=== PATIENT | female | born 1940 | race African-American/Black ===

== ENCOUNTER 2021-01-21 15:47 | Inpatient (IN) | payer MEDICARE, MEDICAID ==
[~2021-01-21] VITALS: Ht 162.6 cm; Wt 69.5 kg
[2021-01-21 16:00] VITALS: BP 131/63
[2021-01-21 20:00] VITALS: BP 110/52
[2021-01-21] MEDS ORDERED: DEXTROSE 50% WATER 50ML SYRINGE IV PRN (20:15)
[2021-01-21] MEDS ORDERED: HYDROCODONE/ACETAMINOPHEN 5/325MG TABLET PO PRN (20:15)
[2021-01-21] MEDS ORDERED: CEFTRIAXONE 1 G PREMIX 50 ML IV SCH (20:15)
[2021-01-21] MEDS ORDERED: HEPARIN 5000 UNITS/ML VIAL IV SCH (20:30)
[2021-01-21] MEDS ORDERED: HEPARIN 25,000 UNITS PREMIX 250 ML IV PRN (20:30)
[2021-01-21] MEDS: BLOOD SUGAR DIAGNOSTIC STRIP TEST SCH (21:00)
[2021-01-21] MEDS ORDERED: HEPARIN 5000 UNITS/ML VIAL IV PRN ×2 (22:00)
[2021-01-21] MEDS: ATORVASTATIN CALCIUM 40MG TABLET PO SCH (22:05)
[2021-01-21] MEDS: CEFTRIAXONE 1,000 MG in DEXTROSE 5% WATER 50 ML IV SCH (22:07)
[2021-01-21] MEDS: INSULIN LISPRO 100 UNITS/ML SUBCUT SCH (22:09)
[2021-01-22] VITALS (8 sets, daily range): BP systolic 101–129; BP diastolic 48–69
[2021-01-22 05:49] LABS: HEMATOCRIT. 34.8 % (36.0-48.0); HEMOGLOBIN. 11.5 g/dL (12.0-16.0); MEAN CORPUSCULAR HEMOGLOBIN 31.3 pg (28.0-32.0); MEAN CORPUSCULAR VOLUME 94.5 fL (81.0-99.0); MEAN PLATELET VOLUME 10.9 fl (7.4-10.4); PLATELET 150 x1000/uL (130-400); RED BLOOD CELL COUNT 3.68 mill/uL (4.2-5.4); RED CELL DISTRIBUTION WIDTH 13.5 % (11.6-14.6)
[2021-01-22 06:36] LABS: CHLORIDE 107 mEq/L (98-107)
[2021-01-22] MEDS: BLOOD SUGAR DIAGNOSTIC STRIP TEST SCH ×4 (06:52→20:42)
[2021-01-22] MEDS: INSULIN LISPRO 100 UNITS/ML SUBCUT SCH ×4 (07:50→20:42)
[2021-01-22] MEDS ORDERED: NICARDIPINE 100MCG/ML 10ML VIAL (CATH LAB) IV ONE (08:04)
[2021-01-22] MEDS ORDERED: NITROGLYCERIN 50MCG/ML 10ML VIAL (CATH LAB) IV ONE (08:04)
[2021-01-22] MEDS: FAMOTIDINE 20MG TABLET PO SCH (09:00)
[2021-01-22] MEDS: ASPIRIN 81MG TABLET PO SCH (09:00)
[2021-01-22] MEDS: TICAGRELOR 90 MG TABLET PO SCH ×2 (09:00→17:40)
[2021-01-22] MEDS ORDERED: FENTANYL CITRATE/PF 50MCG/ML 2ML VIAL ONE (10:48)
[2021-01-22] MEDS ORDERED: LIDOCAINE HCL 1% 10 MG/ML 10ML VIAL ONE ×2 (10:49→11:38)
[2021-01-22] MEDS ORDERED: IODIXANOL 320MG/ML 100 ML BOTTLE IV ONE ×2 (10:49→12:47)
[2021-01-22] MEDS ORDERED: MIDAZOLAM HCL 2 MG/2 ML VIAL ONE (10:49)
[2021-01-22] MEDS ORDERED: HEPARIN 1000 UNITS/ML 10ML ONE (10:49)
[2021-01-22] MEDS ORDERED: IOHEXOL-300 100 ML BOTTLE ONE (12:20)
[2021-01-22] MEDS ORDERED: ASPIRIN 81MG TABLET ONE (13:07)
[2021-01-22] MEDS ORDERED: TICAGRELOR 90 MG TABLET PO ONE (13:08)
[2021-01-22] MEDS ORDERED: ATROPINE SULFATE 1MG/10ML SYR IV PRN (13:30)
[2021-01-22] MEDS ORDERED: NALOXONE HCL 0.4MG/ML VIAL IV PRN (13:30)
[2021-01-22] MEDS ORDERED: MORPHINE SULFATE 2 MG/ML CPJ (NOT FOR IM USE) IV PRN (13:30)
[2021-01-22] MEDS: ATORVASTATIN CALCIUM 40MG TABLET PO SCH (20:41)
[2021-01-22] MEDS: ACETAMINOPHEN 325MG TABLET PO PRN (20:41)
[2021-01-22] MEDS: CEFTRIAXONE 1,000 MG in DEXTROSE 5% WATER 50 ML IV SCH (21:30)
[2021-01-22 22:32] LABS: PLATELET ESTIMATE NORMAL
[2021-01-23] VITALS (16 sets, daily range): BP systolic 97–134; BP diastolic 48–80
[2021-01-23] MEDS ORDERED: AMIODARONE HCL 900 MG in DEXT 5% WATER 482 ML IV SCH (01:00)
[2021-01-23] MEDS ORDERED: AMIODARONE HCL 150 MG in DEXT 5% WATER 97 ML IV SCH (01:00)
[2021-01-23] MEDS ORDERED: INSULIN LISPRO 100 UNITS/ML SUBCUT SCH (01:15)
[2021-01-23] MEDS ORDERED: ONDANSETRON HCL 4MG/2ML INJ IV PRN (01:15)
[2021-01-23] MEDS: BLOOD SUGAR DIAGNOSTIC STRIP TEST SCH ×4 (05:48→21:24)
[2021-01-23 07:17] LABS: HEMATOCRIT. 33.3 % (36.0-48.0); HEMOGLOBIN. 10.9 g/dL (12.0-16.0); MEAN CORPUSCULAR HEMOGLOBIN 31.2 pg (28.0-32.0); MEAN CORPUSCULAR VOLUME 95.3 fL (81.0-99.0); MEAN PLATELET VOLUME 10.8 fl (7.4-10.4); PLATELET 159 x1000/uL (130-400); RED CELL DISTRIBUTION WIDTH 13.7 % (11.6-14.6)
[2021-01-23 07:32] LABS: CHLORIDE 105 mEq/L (98-107)
[2021-01-23] MEDS: TICAGRELOR 90 MG TABLET PO SCH ×2 (08:15→17:43)
[2021-01-23] MEDS: FAMOTIDINE 20MG TABLET PO SCH (08:15)
[2021-01-23] MEDS: ASPIRIN 81MG TABLET PO SCH (08:15)
[2021-01-23] MEDS: INSULIN LISPRO 100 UNITS/ML SUBCUT SCH ×4 (08:16→21:27)
[2021-01-23] MEDS: ACETAMINOPHEN 325MG TABLET PO PRN (12:07)
[2021-01-23 13:41] LABS: PLATELET ESTIMATE NORMAL
[2021-01-23] MEDS ORDERED: PROPOFOL 200MG/20ML VIAL IV ONE (16:53)
[2021-01-23] MEDS: AMIODARONE HCL 200 MG TABLET PO SCH (21:24)
[2021-01-23] MEDS: ATORVASTATIN CALCIUM 40MG TABLET PO SCH (21:24)
[2021-01-23] MEDS: CEFTRIAXONE 1,000 MG in DEXTROSE 5% WATER 50 ML IV SCH (21:24)
[2021-01-24] VITALS (13 sets, daily range): BP systolic 109–147; BP diastolic 57–82
[2021-01-24] MEDS: BLOOD SUGAR DIAGNOSTIC STRIP TEST SCH ×4 (06:20→21:23)
[2021-01-24] MEDS ORDERED: AMIODARONE HCL 150 MG in DEXT 5% WATER 97 ML IV SCH (06:30)
[2021-01-24] MEDS ORDERED: AMIODARONE HCL 900 MG in DEXT 5% WATER 482 ML IV SCH (06:30)
[2021-01-24 06:58] LABS: CHLORIDE 105 mEq/L (98-107)
[2021-01-24] MEDS: FAMOTIDINE 20MG TABLET PO SCH (08:55)
[2021-01-24] MEDS: AMIODARONE HCL 200 MG TABLET PO SCH ×2 (08:55→21:23)
[2021-01-24] MEDS: TICAGRELOR 90 MG TABLET PO SCH ×2 (08:55→17:17)
[2021-01-24] MEDS: ASPIRIN 81MG TABLET PO SCH (08:55)
[2021-01-24] MEDS: INSULIN LISPRO 100 UNITS/ML SUBCUT SCH ×4 (08:55→21:24)
[2021-01-24] MEDS: ACETAMINOPHEN 325MG TABLET PO PRN (17:17)
[2021-01-24] MEDS: ATORVASTATIN CALCIUM 40MG TABLET PO SCH (21:22)
[2021-01-24] MEDS: CEFTRIAXONE 1,000 MG in DEXTROSE 5% WATER 50 ML IV SCH (21:37)
[2021-01-25 00:01] VITALS: BP 135/73
[2021-01-25 03:37] VITALS: BP 133/68
[2021-01-25 06:30] VITALS: BP 135/73
[2021-01-25 07:15] VITALS: BP 129/79
[2021-01-25] MEDS: INSULIN LISPRO 100 UNITS/ML SUBCUT SCH (07:20)
[2021-01-25] MEDS: BLOOD SUGAR DIAGNOSTIC STRIP TEST SCH (07:24)
[2021-01-25 08:00] VITALS: BP 127/81
[2021-01-25] MEDS: TICAGRELOR 90 MG TABLET PO SCH (09:25)
[2021-01-25] MEDS: ASPIRIN 81MG TABLET PO SCH (09:25)
[2021-01-25] MEDS: FAMOTIDINE 20MG TABLET PO SCH (09:25)
[2021-01-25] MEDS: AMIODARONE HCL 200 MG TABLET PO SCH (09:25)
== END 2021-01-25 09:50 | disposition home or self-care (01) | DRG 178 ==
LOC: 6WST 15:47 → 3WST 01-22 13:40
PROVIDERS: ADMIT Internal Medicine; ATTEND Internal Medicine
PROC: 027034Z Dilation of Coronary Artery, One Artery with Drug-eluting Intraluminal Device, Percutaneous Approach (ICD-10-PCS; principal; 2021-01-22)
PROC: 02HA3RZ Insertion of Short-term External Heart Assist System into Heart, Percutaneous Approach (ICD-10-PCS; 2021-01-22)
PROC: 4A023N7 Measurement of Cardiac Sampling and Pressure, Left Heart, Percutaneous Approach (ICD-10-PCS; 2021-01-22)
PROC: 5A0221D Assistance with Cardiac Output using Impeller Pump, Continuous (ICD-10-PCS; 2021-01-22)
PROC: B2111ZZ Fluoroscopy of Multiple Coronary Arteries using Low Osmolar Contrast (ICD-10-PCS; 2021-01-22)
PROC: B2151ZZ Fluoroscopy of Left Heart using Low Osmolar Contrast (ICD-10-PCS; 2021-01-22)
DX: I21.4 Non-ST elevation (NSTEMI) myocardial infarction (principal); D64.9 Anemia, unspecified; E11.9 Type 2 diabetes mellitus without complications; I10 Essential (primary) hypertension; E78.5 Hyperlipidemia, unspecified; I25.10 Atherosclerotic heart disease of native coronary artery without angina pectoris; I48.91 Unspecified atrial fibrillation; Z20.822 Contact with and (suspected) exposure to COVID-19; Z79.899 Other long term (current) drug therapy
CPT/HCPCS: 33990; 36415; 80048; 80053; 82962; 83036; 83735; 84484; 85025; 85347; 87426; 92928; 93458; C1760; C1769; C1874; C1887; C1893; C1894; J0282; J0696; J1644; J1815; J2250; J2270; J2405; J2704; J3010; J3490; J7060; Q9967; J8499